=== PATIENT | male | born 1985 | race American Indian/Alaskan Native ===

== ENCOUNTER 2020-09-09 01:18 | Emergency (ER) | payer BC ==
[~2020-09-09] VITALS: Ht 177.8 cm; Wt 76.4 kg
[~2020-09-09 01:18] MED LIST: NO HOME MEDS; TOBR5DRO57 OP
[2020-09-09] MEDS ORDERED: prednisone 10mg tablet PO SCH (01:30)
[2020-09-09] MEDS ORDERED: ipratropium/albuterol 3ml nebule NEB ONE (01:30)
[2020-09-09] MEDS ORDERED: PRED20TA PO (01:32)
[2020-09-09] MEDS ORDERED: ALBU8HFA PO (01:32)
[2020-09-09] MEDS ORDERED: predniSONE 20 mg tablet PO ONE (01:35)
[2020-09-09 02:10] VITALS: BP 120/79
--- NOTE | 2020-09-09 02:12 | NUR ---
Pt states he feels much better and is breathing easier after RT treatment
== END 2020-09-09 02:27 | disposition home or self-care (01) ==
LOC: ER 01:18
DX: J45.901 Unspecified asthma with (acute) exacerbation (principal); F17.200 Nicotine dependence, unspecified, uncomplicated; F12.90 Cannabis use, unspecified, uncomplicated; Z87.01 Personal history of pneumonia (recurrent); Z88.8 Allergy status to other drugs, medicaments and biological substances; Z79.2 Long term (current) use of antibiotics; Z79.899 Other long term (current) drug therapy
CPT/HCPCS: 71045; 93005; 94640; 99283; J7512